=== PATIENT | male | born 1990 | race Caucasian/White ===

== ENCOUNTER 2024-08-06 10:21 | Emergency (ER) | payer OTHER, SELFPAY ==
[2024-08-06 10:30] VITALS: BP 134/87; PULSE 78; RESP 17; TEMP 37; O2SAT 99; BMI 33.3
--- NOTE | 2024-08-06 11:04 | ED.URI ---
HPI - URI/Sore Throat General Chief Complaint: Ear Stated Complaint: Possible ear infection; cold/flu symptoms Time Seen by Provider: 08/06/24 10:58 Source: patient Mode of arrival: Ambulatory History of Present Illness HPI Narrative: Patient has had cough cold congestion sore throat bilateral ear pain for the past 4 days. Daughter is being treated for pneumonia and UTI and strep throat. Patient denies any heart attack strokes or diabetes. Vital signs are reassuring at this time. No nausea or vomiting or diarrhea. Related Data Previous Rx's Medication Instructions Recorded amoxicillin 875 mg-potassium 1 tab PO BID #14 tabs 08/06/24 clavulanate 125 mg tablet benzonatate 100 mg capsule 100 mg PO TID PRN cough #20 caps 08/06/24 doxycycline monohydrate 100 mg 100 mg PO BID #14 caps 08/06/24 capsule Review of Systems Review of Systems Narrative: GENERAL: Positive chills, fatigue, malaise, fever, negative sweats. HEENT: Negative sinus pain, positive ear pain, sore throat RESPIRATORY: Negative dyspnea, positive cough CARDIOVASCULAR: Negative chest pain, palpitations GASTROINTESTINAL: Negative vomiting, nausea, abdominal pain : Negative dysuria, frequency, hematuria MUSCULOSKELETAL: Negative muscle or bony pain SKIN: Negative rash, skin lesions NEUROLOGIC: Negative weakness, numbness ROS Unobtainable: All systems reviewed & are unremarkable except as noted in HPI and below Patient History Social History Smoking Status: Never smoker Smoking Status: Never smoker Exam Narrative Exam Narrative: GENERAL: in no distress, not toxic not dyspneic HEAD: Normocephalic. EYES: Pupils equal round ENT: Mucous membranes moist. Mild bilateral pharyngeal erythema without exudates or edema. No uvula shift. No tongue elevation or drooling. No trismus or malocclusion., bilateral TMs are mildly erythematous but no bulging or effusion. No tragus tenderness NECK: Trachea midline. CARDIOVASCULAR: Regular rate and rhythm RESPIRATORY: Clear to auscultation. Breath sounds equal but slightly diminished bilaterally. No wheezes, rales, or rhonchi. Speaking full sentences. GASTROINTESTINAL: Abdomen soft, non-tender EXTREMITIES: No gross deformities. BACK: No flank tenderness. NEURO: AOx4. Clear speech SKIN: Warm and dry PSYCH: Not anxious, is cooperative Initial Vital Signs Initial Vital Signs: Vital Signs Temperature 98.6 F 08/06/24 10:30 Pulse Rate 78 08/06/24 10:30 Respiratory Rate 17 08/06/24 10:30 Blood Pressure 134/87 08/06/24 10:30 Pulse Oximetry 99 08/06/24 10:30 Oxygen Delivery Method Room Air 08/06/24 10:30 Course Orders Ordered: Discontinued Medications Amoxicillin/Clavulanate Potassium (Amoxicillin/Clav 875/125 Mg) 1 tab PO NOW ONE Stop: 08/06/24 11:05 Last Admin: 08/06/24 11:23 Dose: 1 tab Documented By: Benzonatate (Benzonatate 100 Mg Capsule) 100 mg PO NOW ONE Stop: 08/06/24 11:05 Last Admin: 08/06/24 11:24 Dose: 100 mg Documented By: Doxycycline Hyclate (Doxycycline Hyclate 100 Mg Tablet) 100 mg PO NOW ONE Stop: 08/06/24 11:05 Last Admin: 08/06/24 11:24 Dose: 100 mg Documented By: Vital Signs Vital signs: Vital Signs - 8 hr 08/06/24 10:30 08/06/24 11:26 Temperature 98.6 F Pulse Rate 78 85 Respiratory Rate 17 16 Blood Pressure 134/87 134/78 Pulse Oximetry 99 98 Oxygen Delivery Method Room Air Room Air MDM - URI/Sore Throat [facility] Narrative Medical decision making narrative: Patient has had cough cold congestion sore throat bilateral ear pain for the past 4 days. Daughter is being treated for pneumonia and UTI and strep throat. Patient denies any heart attack strokes or diabetes. Vital signs are reassuring at this time. No nausea or vomiting or diarrhea. After history and exam, exam is reassuring, treating patient clinic for pneumonia. Patient has had same symptoms as daughter. Patient agrees no laboratory studies or imaging indicated at this time. We will not global director air and climate change. [facility] Medical records reviewed: No recent visit for this complaint Differential considered: Includes but not limited to pneumonia bronchitis strep throat otitis media Consultations: None indicated Re-evaluations: Reviewed exam with patient. Antibiotics will be started. This will cover ear infection throat infection as well as pneumonia. Return precautions reviewed. He desires discharge home. Discussion: Appropriate for antibiotics as patient has had same symptoms as daughter and hitting same directions as she is with pneumonia according to patient. Return precautions reviewed. He desires discharge home. Diagnosis: Upper respiratory infection Discharge Plan Departure Patient Disposition: Home Clinical Impression: Acute upper respiratory infection Instructions: DI for Pharyngitis/Tonsillopharyngitis -- Adult, DI for Atypical Pneumonia Activity Restrictions/Additional Instructions: Please see family doctor next week for re-evaluation. Antibiotics have been started for you this morning. Prescriptions have been sent to your pharmacy to pick up man at continue this evening. Keep well hydrated. Return if worse if any questions or concerns. You are being treated at this time for pneumonia with antibiotics. Prescriptions: New benzonatate 100 mg capsule 100 mg PO TID PRN (Reason: cough) Qty: 20 0RF doxycycline monohydrate 100 mg capsule 100 mg PO BID Qty: 14 0RF amoxicillin-pot clavulanate 875-125 mg tablet 1 tab PO BID Qty: 14 0RF Stand Alone Forms: Patient Portal/API/Survey
[2024-08-06] MEDS: AMOXICILLIN/CLAV 875/125 MG 1 TAB PO (11:23)
[2024-08-06] MEDS: DOXYCYCLINE HYCLATE 100 MG TABLET PO (11:24)
[2024-08-06] MEDS: BENZONATATE 100 MG CAPSULE PO (11:24)
[2024-08-06 11:26] VITALS: BP 134/78; PULSE 85; RESP 16; O2SAT 98
== END 2024-08-06 11:27 | disposition home or self-care (01) ==
PROVIDERS: Emergency Provider Emergency Medicine
DX: J06.9 Acute upper respiratory infection, unspecified (principal)
CPT/HCPCS: 99283

== ENCOUNTER 2024-08-18 12:36 | Emergency (ER) | payer OTHER, SELFPAY ==
[2024-08-18 12:51] VITALS: BP 140/82; PULSE 79; RESP 18; TEMP 37.1; O2SAT 98; BMI 33.3
--- NOTE | 2024-08-18 12:56 | DI.RAD.S_ITS ---
PROCEDURE: XR HAND LT MIN 3V INDICATIONS: cut right below base of left index finger TECHNIQUE: 3 views of the hand(s) acquired. COMPARISON: None. FINDINGS: Bones: No fractures or dislocations. Carpal bones are normally aligned. No suspicious bony lesions. Soft tissues: No suspicious soft tissue calcifications. IMPRESSION: No visualized acute fracture or dislocation. However, if clinical concern and/or pain persist, short interval imaging followup in 7-10 days is recommended, as occult injury cannot be definitively excluded. Dictated by: Kya Triplett M.D. on 08/18/2024 at 13:38 Approved by: Kya Triplett M.D. on 08/18/2024 at 13:38
[2024-08-18 15:32] VITALS: O2SAT 98
--- NOTE | 2024-08-18 15:32 | ED.WOUNDLAC ---
HPI - Wound/Laceration General Chief Complaint: Wound/Laceration Stated Complaint: Left hand index finger lac Time Seen by Provider: 08/18/24 15:32 Source: patient Mode of arrival: Ambulatory History of Present Illness HPI narrative: Pt here for laceration to the L hand (base of the 2nd finger) when cutting a watermelon @ noontime. Bled a fair amount. Up to date on Tetanus shot. Able to flex finger without difficulty. Hasn't taken anything for pain yet. Related Data Previous Rx's Medication Instructions Recorded amoxicillin 875 mg-potassium 1 tab PO BID #14 tabs 08/06/24 clavulanate 125 mg tablet benzonatate 100 mg capsule 100 mg PO TID PRN cough #20 caps 08/06/24 doxycycline monohydrate 100 mg 100 mg PO BID #14 caps 08/06/24 capsule Allergies Allergy/AdvReac Type Severity Reaction Status Date / Time No Known Drug Allergies Allergy Verified 08/18/24 12:50 Review of Systems Review of Systems ROS Unobtainable: All systems reviewed & are unremarkable except as noted in HPI and below Patient History Smoking Status: Never smoker Exam Narrative Exam Narrative: L hand - 1cm flap laceration to the base of the 2nd digit; full ROM of the finger; no tendon or bone involvement. No active bleeding Initial Vital Signs Initial Vital Signs: Vital Signs Temperature 98.7 F 08/18/24 12:51 Pulse Rate 79 08/18/24 12:51 Respiratory Rate 18 08/18/24 12:51 Blood Pressure 140/82 08/18/24 12:51 Pulse Oximetry 98 08/18/24 12:51 Oxygen Delivery Method Room Air 08/18/24 12:51 Procedures Laceration Repair Laceration 1: Site: hand Side (If applicable): left Size (cm): 1 Description: flap Depth: simple, single layer Local Anesthetic: lidocaine 1% Amount of anesthesia used (mL): 1 Pre-repair: wound explored and cleansed with chlorhexadine Skin layer closed with: nylon Skin layer suture size: 4-0 Number of sutures: 2 Technique: simple, interrupted Course Course Course Narrative: Pt interviewed and examined. Wound closely examined and cleaned with Hibiclens. See procedure note for repair details. Xrays negative. Stable for discharge. Orders Ordered: ED Orders 08/18/24 12:56 XR hand LT min 3V Stat Discontinued Medications Ibuprofen (Ibuprofen 400 Mg Tablet) 800 mg PO NOW ONE Stop: 08/18/24 15:39 Last Admin: 08/18/24 15:55 Dose: 800 mg Vital Signs Vital signs: Vital Signs - 8 hr 08/18/24 12:51 Temperature 98.7 F Pulse Rate 79 Respiratory Rate 18 Blood Pressure 140/82 Pulse Oximetry 98 Oxygen Delivery Method Room Air MDM - Wound/Laceration Medical Records Attestation: I reviewed the patient's medical records. Discharge Plan Departure Patient Disposition: Home Clinical Impression: Laceration of hand Qualifiers: Encounter type: initial encounter Foreign body presence: without foreign body Laterality: left Qualified Code(s): S61.412A - Laceration without foreign body of left hand, initial encounter Instructions: DI for Laceration Repair, DI for Wound Infection Activity Restrictions/Additional Instructions: Keep area clean and dry. Use Neosporin to the area 2x/day x 1 week. Watch for signs of infection. Take ibuprofen as needed for pain. Follow up with your regular doctor or return to the ER in 7 days for suture removal. Prescriptions: No Action benzonatate 100 mg capsule 100 mg PO TID PRN (Reason: cough) Qty: 20 0RF doxycycline monohydrate 100 mg capsule 100 mg PO BID Qty: 14 0RF amoxicillin-pot clavulanate 875-125 mg tablet 1 tab PO BID Qty: 14 0RF Stand Alone Forms: Patient Portal/API/Survey
[2024-08-18 15:33] VITALS: BP 140/84; PULSE 64; TEMP 37.2; O2SAT 99
[2024-08-18] MEDS: IBUPROFEN 400 MG TABLET 800 MG PO (15:55)
[2024-08-18 16:08] VITALS: BP 135/79; PULSE 79; RESP 20; TEMP 37; O2SAT 100
== END 2024-08-18 16:10 | disposition home or self-care (01) ==
PROVIDERS: Emergency Provider Emergency Medicine
DX: S61.412A Laceration without foreign body of left hand, initial encounter (principal); W26.0XXA Contact with knife, initial encounter
CPT/HCPCS: 12001; 73130; 99283